=== PATIENT | female | born 2000 | race Caucasian/White ===

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

== ENCOUNTER 2020-03-30 22:39 | Emergency (ER) | payer SELFPAY ==
--- NOTE | 2020-03-30 23:06 | EDM.PDOC ---
ED HPI GENERAL MEDICAL PROBLEM - General Chief Complaint: Abdominal Pain Stated Complaint: STOMACH PAINS AND DIARRHEA Time Seen by Provider: 03/30/20 23:05 - History of Present Illness INITIAL COMMENTS - FREE TEXT/NARRATIVE: 20-year-old female presents the emergency room with intermittent abdominal cramps and diarrhea. This started this morning patient had frequent bouts of diarrhea that was crampy in nature. The diarrhea is pretty much gone however she still has intermittent cramping. She has had no nausea or vomiting no fevers or chills. Her coworkers have not had similar complaints. She is currently on control and states she is taking this on a regular basis. 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 (see below) Other Treatments LEAD MAINTENANCE TECHNICIAN: peptobismol Lower Abdominal Pain Score (Numeric/FACES): 6 - Related Data Allergies Allergy/AdvReac Type Severity Reaction Status Date / Time pepper (genus Capsicum) Allergy Airway Verified 03/30/20 22:51 Tightness tomato Allergy Airway Verified 03/30/20 22:51 Tightness Home Meds: Home Meds Sertraline [Zoloft] 100 mg PO DAILY 12/25/19 [History] norgestimate-ethinyl estradioL [Ortho Tri-Cyclen 28 Tablet] 1 each PO DAILY 12/25/19 [History] Hyoscyamine Sulfate [Levsin-Sl] 0.125 mg SL ASDIRECTED #12 tab.subl 03/31/20 [Rx] Past Medical History HEENT History: Reports: None Cardiovascular History: Reports: None Respiratory History: Reports: None Gastrointestinal History: Reports: GERD Genitourinary History: Reports: None 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 History: Musculoskeletal History: Reports: None Neurological History: Reports: Migraines Psychiatric History: Reports: Anxiety, Depression Endocrine/Metabolic History: Reports: None Hematologic History: Reports: None Immunologic History: Reports: None Oncologic (Cancer) History: Reports: None Dermatologic History: Reports: None - Infectious Disease History Infectious Disease History: Reports: None Social & Family History - Caffeine Use Caffeine Use: Reports: Energy Drinks Caffeine Use Comment: occasionally - Recreational Drug Use Recreational Drug Use: No ED ROS GENERAL - Review of Systems Review Of Systems: See Below Constitutional: Reports: No Symptoms HEENT: Reports: No Symptoms, Vertigo Cardiovascular: Reports: No Symptoms Endocrine: Reports: No Symptoms GI/Abdominal: Reports: Abdominal Pain (Crampy pain), Diarrhea. Denies: Constipation, Nausea, Vomiting : Reports: No Symptoms Musculoskeletal: Reports: No Symptoms Skin: Reports: No Symptoms Neurological: Reports: No Symptoms Psychiatric: Reports: No Symptoms ED EXAM, GI/ABD - Physical Exam Exam: See Below Exam Limited By: No Limitations General Appearance: Alert, No Apparent Distress Head: Atraumatic, Normocephalic Neck: Normal Inspection, Supple, Non-Tender, Full Range of Motion Respiratory/Chest: No Respiratory Distress, Lungs Clear, Normal Breath Sounds Cardiovascular: Regular Rate, Rhythm, No Edema, No Murmur GI/Abdominal Exam: Normal Bowel Sounds, Soft, Tender (All non-localizing discomfort with palpation no rigidity rebound or guarding noted) Back Exam: Normal Inspection. No: CVA Tenderness (L), CVA Tenderness (R) Neurological: Alert, Oriented Course - Vital Signs Last Recorded V/S: Last Vital Signs Temp 36.3 C 03/30/20 22:47 Pulse 75 03/30/20 23:31 Resp 16 03/30/20 23:31 BP 114/72 03/30/20 23:31 Pulse Ox 99 03/30/20 23:31 - Orders/Labs/Meds Meds: Medications Discontinued Medications Generic Name Dose Route Start Last Admin Trade Name Otis PRN Reason Stop Dose Admin Hyoscyamine 0.25 mg 03/30/20 23:14 03/30/20 23:32 Hyomax-Sl SL 03/30/20 23:15 0.25 mg ONETIME ONE Administration - Re-Assessments/Exams Free Text/Narrative Re-Assessment/Exam: 03/30/20 23:27 She states she is sleep deprived and does not want to stay here all that long did discuss laboratory evaluation and an abdominal x-ray she like to hold off on this. We will give her a dose of Levsin 0.25 mg and see how she does. 03/31/20 00:13 The patient is doing considerably better after the Levsin. And she would like to go home. Departure - Departure Time of Disposition: 00:15 Disposition: Home, Self-Care 01 Clinical Impression: Diarrhea - Discharge Information Referrals: Amaya Benz NP [Primary Care Provider] - Forms: ED Department Discharge Additional Instructions: Return to the emergency room with any questions problems or worsening symptoms. 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 Even given a prescription for Levsin take 1 or 2 every 4 hours as needed for cramping. Sepsis Event Note (ED) - Evaluation Sepsis Screening Result: No Definite Risk - Focused Exam Vital Signs: Vital Signs Temp Pulse Resp BP Pulse Ox 03/30/20 23:31 75 16 114/72 99 03/30/20 22:47 36.3 C 66 16 122/71 99
[2020-03-30] MEDS ORDERED: Hyoscyamine 0.125 MG Tab.SL SL ONE (23:14)
== END 2020-03-31 00:22 | disposition home or self-care (01) ==
LOC: JD.ED 22:39
DX: R19.7 Diarrhea, unspecified (principal); F41.9 Anxiety disorder, unspecified; F32.9 Major depressive disorder, single episode, unspecified; Z91.018 Allergy to other foods; Z79.899 Other long term (current) drug therapy
CPT/HCPCS: 99283; A9270; 99282

== ENCOUNTER 2021-03-11 20:33 | Emergency (ER) | payer MEDICAID ==
[2021-03-11] MEDS ORDERED: Amoxicillin/Clavulanate K 875-125 MG Tab PO ONE (21:59)
[2021-03-11] MEDS ORDERED: Ketorolac 60 MG/2 ML SDV IM ONE (21:59)
[2021-03-11] MEDS ORDERED: Acetaminophen/HYDROcodone 325-5 MG Tab PO ONE (22:03)
--- NOTE | 2021-03-11 22:17 | EDM.PDOC ---
ED HPI GENERAL MEDICAL PROBLEM - General Chief Complaint: ENT Problem Stated Complaint: DENTAL COMPLAINT Time Seen by Provider: 03/11/21 21:58 Source of Information: Reports: Patient, RN Notes Reviewed History Limitations: Reports: No Limitations - History of Present Illness INITIAL COMMENTS - FREE TEXT/NARRATIVE: Patient is a 21-year-old female who presents to the ER for the evaluation of her dental complaint. She notes that she has been having pain with a tooth in her left upper jaw for about a week now, she has been using Tylenol and ibuprofen with little to no relief. She believes that it might be one of her wisdom teeth trying to break through, or has either eroded or broken off. She has an appointment with the dental provider in the middle of April, she states that it is hard to find a provider who takes Medicaid. She has had no fevers or chills, cough or shortness of breath, but states that the pain is so intense that it is causing a migraine headache and she is not been able to eat much, or get much sleep for the past few days. She is also not complaining of any sort of nausea/vomiting/diarrhea, or any sort of sore throat or otherwise. 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: Acetaminophen, NSAIDS Left Oral/Mouth Pain Score (Numeric/FACES): 8 - Related Data Allergies Allergy/AdvReac Type Severity Reaction Status Date / Time pepper (genus Capsicum) Allergy Airway Verified 03/11/21 21:23 Tightness tomato Allergy Airway Verified 03/11/21 21:23 Tightness Home Meds: Home Meds Sertraline [Zoloft] 100 mg PO DAILY 12/25/19 [History] Amoxicillin/Clavulanate K [Augmentin 875-125 MG] 1 tab PO BID #14 tablet 03/11/21 [Rx] Hydrocodone/Acetaminophen [HYDROcodone-Acetaminophen 5-325 MG] 1 each PO Q6H PRN #10 tablet 03/11/21 [Rx] Past Medical History - Past Health History Medical/Surgical History: Denies Medical/Surgical History HEENT History: Reports: None Cardiovascular History: Reports: None Respiratory History: Reports: None Gastrointestinal History: Reports: GERD Genitourinary History: Reports: None [employer]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 [employer] History: Musculoskeletal History: Reports: None Neurological History: Reports: Migraines Psychiatric History: Reports: Anxiety, Depression Endocrine/Metabolic History: Reports: None Hematologic History: Reports: None Immunologic History: Reports: None Oncologic (Cancer) History: Reports: None Dermatologic History: Reports: None - Infectious Disease History Infectious Disease History: Reports: None Social & Family History - Tobacco Use Tobacco Use Status *Q: Never Tobacco User - Caffeine Use Caffeine Use: Reports: None Caffeine Use Comment: occasionally - Recreational Drug Use Recreational Drug Use: No ED ROS ENT - Review of Systems Review Of Systems: Comprehensive ROS is negative, except as noted in HPI. ED EXAM, ENT - Physical Exam Exam: See Below Exam Limited By: No Limitations General Appearance: Alert, WD/WN, No Apparent Distress Mouth/Throat: Normal Inspection, Normal Gums, Normal Lips, Normal Oropharynx, Dental Pain (to left upper jaw) Head: Atraumatic, Normocephalic Respiratory/Chest: No Respiratory Distress, Lungs Clear, Normal Breath Sounds, No Accessory Muscle Use, Chest Non-Tender Cardiovascular: Normal Peripheral Pulses, Regular Rate, Rhythm, No Edema Extremities: Normal Inspection, Normal Capillary Refill Neurological: Alert, Oriented, Normal Cognition, No Motor/Sensory Deficits Psychiatric: Normal Affect, Normal Mood Skin: Warm, Dry, Intact, Normal Color, No Rash Course - Vital Signs Last Recorded V/S: Last Vital Signs Temp 97.5 F 03/11/21 21:21 Pulse 77 03/11/21 21:21 Resp 16 03/11/21 21:21 BP 135/91 H 03/11/21 21:21 Pulse Ox 100 03/11/21 21:21 - Orders/Labs/Meds Meds: Medications Discontinued Medications Generic Name Dose Route Start Last Admin Trade Name Otis PRN Reason Stop Dose Admin Hydrocodone Bitart/Acetaminophen 2 tab 03/11/21 22:03 Acetaminophen/Hydrocodone 325-5 Mg Tab PO 03/11/21 22:04 ONETIME ONE Amoxicillin/Clavulanate Potassium 1 tab 03/11/21 21:59 Amoxicillin/Clavulanate K 875-125 Mg Tab PO 03/11/21 22:00 ONETIME ONE Ketorolac Tromethamine 60 mg 03/11/21 21:59 Ketorolac 60 Mg/2 Ml Sdv IM 03/11/21 22:00 ONETIME ONE - Re-Assessments/Exams Free Text/Narrative Re-Assessment/Exam: 03/11/21 22:14 Patient presents to the ER for a dental complaint, we will go ahead and get her started on some antibiotics, get her some pain medications for relief and discharged home with general recommendations. Departure - Departure Time of Disposition: 22:15 Disposition: Home, Self-Care 01 Condition: Good Clinical Impression: Pain, dental - Discharge Information *PRESCRIPTION DRUG MONITORING PROGRAM REVIEWED*: Yes *COPY OF PRESCRIPTION DRUG MONITORING REPORT IN PATIENT BENJAMÍN: No Prescriptions: Amoxicillin/Clavulanate K [Augmentin 875-125 MG] 1 tab PO BID #14 tablet Hydrocodone/Acetaminophen [HYDROcodone-Acetaminophen 5-325 MG] 1 each PO Q6H PRN #10 tablet PRN Reason: Pain Instructions: Dental Pain, [id number] Referrals: PCP,None [Primary Care Provider] - Additional Instructions: You have been evaluated in the ED for your dental pain. You have been provided with a script for Augmentin. Please take this medication as directed. (1 tab BID for 7 days or until gone). Please note this antibiotic can take up to 48 hours to provide coverage. If you do not notice an improvement in the swelling within 3 days time I recommend you seek care for reevaluation for change in antibiotics. This antibiotic can cause diarrhea, recommend that you start a probiotic while taking this medication. You were given a prescription for a strong pain medication, hydrocodo ne/acetaminophen 5/325 mg, please take 1 tab every 6 hours as needed for pain not relieved by Tylenol or ibuprofen alone. Please note this medication does contain Tylenol in it, so do not take more than 4000 mg in a 24-hour time span. These medications can be addictive, so please take as few as possible to achieve adequate pain control. These meds can also be quite constipating, recommend that you increase your oral fluid intake and take a stool softener like MiraLAX while taking these medications. Do not drive while taking this medication. This medication was electronically sent to the [facility] located on [address]. Recommend that you also take at least 600 mg ibuprofen every 6 hours, or 1 to 2 tablets of Aleve every 12 hours for ongoing inflammation relief. Do not exceed 3200 mg ibuprofen in a 24-hour time span. You may use hot pack/ ice packs to the affected area as tolerated in 15-20 minute intervals. You will ultimately need to find a dentist to provide definitive management of your dental pain. Please keep your previous appointment with your dental provider, or try the [facility] in [place], [place], , this clinic that has been known to take people that do not have dental insurance, and may provide payment plans. You might want to check with this provider, regarding your dental pain. Please return to the ED if your symptoms change or worsen. Sepsis Event Note (ED) - Focused Exam Vital Signs: Vital Signs Temp Pulse Resp BP Pulse Ox 03/11/21 21:21 97.5 F 77 16 135/91 H 100
== END 2021-03-11 22:30 | disposition home or self-care (01) ==
LOC: JD.ED 20:33
DX: K08.89 Other specified disorders of teeth and supporting structures (principal); Z91.018 Allergy to other foods
CPT/HCPCS: 96372; 99283; A9270; J1885

== ENCOUNTER 2021-04-03 19:02 | Emergency (ER) | payer MEDICAID ==
[2021-04-03] MEDS ORDERED: Ketorolac 60 MG/2 ML SDV IM ONE (19:54)
[2021-04-03] MEDS ORDERED: HYDROmorphone 1 MG/ML Syringe IM ONE (19:54)
--- NOTE | 2021-04-03 20:02 | EDM.PDOC ---
ED HPI GENERAL MEDICAL PROBLEM - General Chief Complaint: ENT Problem Stated Complaint: TOOTH PAIN Time Seen by Provider: 04/03/21 19:46 Source of Information: Reports: Patient History Limitations: Reports: No Limitations - History of Present Illness INITIAL COMMENTS - FREE TEXT/NARRATIVE: The patient presents with left upper tooth pain. This started over a month ago. She has been trying to get into her dentist. She has an appointment next Sunday. She has more pain the past couple of day. She has no fever or chills. Onset: Gradual Duration: Week(s): (4) Location: Reports: Face (mouth) Quality: Reports: Sharp Severity: Severe Improves with: Reports: None Worsens with: Reports: None Associated Symptoms: Reports: No Other Symptoms Left Oral/Mouth Pain Score (Numeric/FACES): 10 - Related Data Allergies Allergy/AdvReac Type Severity Reaction Status Date / Time pepper (genus Capsicum) Allergy Airway Verified 04/03/21 19:42 Tightness tomato Allergy Airway Verified 04/03/21 19:42 Tightness Home Meds: Home Meds Sertraline [Zoloft] 100 mg PO DAILY 12/25/19 [History] Past Medical History - Past Health History Medical/Surgical History: Denies Medical/Surgical History HEENT History: Reports: None Cardiovascular History: Reports: None Respiratory History: Reports: None Gastrointestinal History: Reports: GERD Genitourinary History: Reports: None JUNIOR PARALEGAL History: Reports: Other JUNIOR PARALEGAL History: Musculoskeletal History: Reports: None Neurological History: Reports: Migraines Psychiatric History: Reports: Anxiety, Depression Endocrine/Metabolic History: Reports: None Hematologic History: Reports: None Immunologic History: Reports: None Oncologic (Cancer) History: Reports: None Dermatologic History: Reports: None - Infectious Disease History Infectious Disease History: Reports: None Social & Family History - Caffeine Use Caffeine Use: Reports: Energy Drinks Caffeine Use Comment: occasionally - Recreational Drug Use Recreational Drug Use: No ED ROS ENT - Review of Systems Review Of Systems: See Below Constitutional: Reports: No Symptoms HEENT: Reports: Dental Pain Respiratory: Reports: No Symptoms Cardiovascular: Reports: No Symptoms Endocrine: Reports: No Symptoms GI/Abdominal: Reports: No Symptoms : Reports: No Symptoms Musculoskeletal: Reports: No Symptoms ED EXAM, ENT - Physical Exam Exam: See Below Exam Limited By: No Limitations General Appearance: Alert, No Apparent Distress Ears: Normal External Exam Nose: Normal Inspection Mouth/Throat: Other (Pain upon palpation with erythema and edema to the left upper jaw with a broken 2nd molar.) Course - Vital Signs Last Recorded V/S: Last Vital Signs Temp 98.4 F 04/03/21 19:41 Pulse 82 04/03/21 19:41 Resp 18 04/03/21 19:41 BP 132/93 H 04/03/21 19:41 Pulse Ox 97 04/03/21 19:41 - Orders/Labs/Meds Meds: Medications Discontinued Medications Generic Name Dose Route Start Last Admin Trade Name Otis PRN Reason Stop Dose Admin Hydromorphone HCl 1 mg 04/03/21 19:54 Hydromorphone 1 Mg/Ml Syringe IM 04/03/21 19:55 ONETIME ONE Ketorolac Tromethamine 60 mg 04/03/21 19:54 Ketorolac 60 Mg/2 Ml Sdv IM 04/03/21 19:55 ONETIME ONE - Re-Assessments/Exams Free Text/Narrative Re-Assessment/Exam: 04/03/21 20:01 I ordered a shot of dilaudid 1mg and toradol 60mg. Departure - Departure Time of Disposition: 20:35 Disposition: Home, Self-Care 01 Condition: Good Clinical Impression: Pain, dental, Dental infection Fractured tooth Qualifiers: Encounter type: initial encounter Fracture type: closed Qualified Code(s): S02.5XXA - Fracture of tooth (traumatic), initial encounter for closed fracture - Discharge Information *PRESCRIPTION DRUG MONITORING PROGRAM REVIEWED*: Not Applicable *COPY OF PRESCRIPTION DRUG MONITORING REPORT IN PATIENT BENJAMÍN: Not Applicable Referrals: PCP,None [Primary Care Provider] - Forms: ED Department Discharge Additional Instructions: Take the pen VK 4 times per day for 10 days. Take tylenol or motrin as needed for pain. If that does not work, try the percocet. Please return if you are worse. Sepsis Event Note (ED) - Focused Exam Vital Signs: Vital Signs Temp Pulse Resp BP Pulse Ox 04/03/21 19:41 98.4 F 82 18 132/93 H 97
== END 2021-04-03 20:55 | disposition home or self-care (01) ==
LOC: JD.ED 19:02
DX: K04.7 Periapical abscess without sinus (principal); K03.81 Cracked tooth; Z91.018 Allergy to other foods
CPT/HCPCS: 96372; 99282; J1170; J1885

== ENCOUNTER 2021-04-16 15:08 | Emergency (ER) | payer MEDICAID ==
--- NOTE | 2021-04-16 15:53 | EDM.PDOC ---
ED HPI GENERAL MEDICAL PROBLEM - General Chief Complaint: ENT Problem Stated Complaint: HEADACHE Time Seen by Provider: 04/16/21 15:30 Source of Information: Reports: Patient, RN Notes Reviewed History Limitations: Reports: No Limitations - History of Present Illness INITIAL COMMENTS - FREE TEXT/NARRATIVE: Patient is a 21-year-old female presenting to the emergency department with complaints of ongoing left upper dental pain. She has a broken wisdom tooth in that area and it is beginning her pain for a number of months. She was seen by her dentist on April 12 advised that she will have to have a surgical procedure, however he is able to complete it. He is unfortunately out of the office and a family emergency until 25 April. At that time, he is supposed to contact her to set up an appointment to have this removed. She has been using Tylenol and ibuprofen with little to no relief. She just finished a course of penicillin V that was prescribed by our ER physician. States that she thinks the pain did slightly improve after taking this, however whenever she gets up and moves around or lies flat the pain worsens. She has took Tylenol and ibuprofen this morning with little relief. Denies any fever, chills, nausea, or vomiting. Oral/Mouth Pain Score (Numeric/FACES): 9 - Related Data Allergies Allergy/AdvReac Type Severity Reaction Status Date / Time pepper (genus Capsicum) Allergy Severe Airway Verified 04/16/21 15:21 Tightness tomato Allergy Severe Airway Verified 04/16/21 15:21 Tightness Home Meds: Home Meds Sertraline [Zoloft] 100 mg PO DAILY 12/25/19 [History] Acetaminophen/oxyCODONE [Percocet 325-5 MG] 0.5 - 1 each PO Q4H PRN #10 tab 04/16/21 [Rx] Past Medical History - Past Health History Medical/Surgical History: Denies Medical/Surgical History HEENT History: Reports: None Cardiovascular History: Reports: None Respiratory History: Reports: None Gastrointestinal History: Reports: GERD Genitourinary History: Reports: None SLOOP CAPTAIN History: Reports: Other SLOOP CAPTAIN History: Musculoskeletal History: Reports: None Neurological History: Reports: Migraines Psychiatric History: Reports: Anxiety, Depression Endocrine/Metabolic History: Reports: None Hematologic History: Reports: None Immunologic History: Reports: None Oncologic (Cancer) History: Reports: None Dermatologic History: Reports: None - Infectious Disease History Infectious Disease History: Reports: None Social & Family History - Caffeine Use Caffeine Use: Reports: Energy Drinks Caffeine Use Comment: occasionally - Recreational Drug Use Recreational Drug Use: No ED ROS ENT - Review of Systems Review Of Systems: Comprehensive ROS is negative, except as noted in HPI. ED EXAM, ENT - Physical Exam Exam: See Below Exam Limited By: No Limitations General Appearance: Alert, WD/WN, No Apparent Distress Mouth/Throat: Other (Fracture left upper wisdom tooth. No swelling or erythema of surrounding tissues.) Respiratory/Chest: No Respiratory Distress, Lungs Clear, Normal Breath Sounds, No Accessory Muscle Use, Chest Non-Tender Cardiovascular: Normal Peripheral Pulses, Regular Rate, Rhythm, No Edema, No Gallop, No JVD, No Murmur, No Rub Neurological: Alert, Oriented, CN II-XII Intact, Normal Cognition, Normal Gait, Normal Reflexes, No Motor/Sensory Deficits Psychiatric: Normal Affect, Normal Mood Skin: Warm, Dry, Intact, Normal Color, No Rash Course - Vital Signs Last Recorded V/S: Last Vital Signs Temp 97.4 F 04/16/21 15:19 Pulse 65 04/16/21 15:19 Resp 16 04/16/21 15:19 BP 134/77 04/16/21 15:19 Pulse Ox 100 04/16/21 15:19 - Orders/Labs/Meds Meds: Medications Discontinued Medications Generic Name Dose Route Start Last Admin Trade Name Freq PRN Reason Stop Dose Admin Hydromorphone HCl 1 mg 04/16/21 16:08 Hydromorphone 1 Mg/Ml Syringe IM 04/16/21 16:09 ONETIME ONE Ketorolac Tromethamine 60 mg 04/16/21 16:08 Ketorolac 60 Mg/2 Ml Sdv IM 04/16/21 16:09 ONETIME ONE - Re-Assessments/Exams Free Text/Narrative Re-Assessment/Exam: Patient is a 21-year-old female presenting to the emergency department complains of ongoing pain to her left upper wisdom tooth. She just completed a treatment of penicillin V which she feels did help slightly, however the pain is still there. On exam, she does have a fracture of her left upper wisdom tooth. There is no redness or swelling. I do not feel there is any infection, therefore I do not feel that another round of antibiotics is necessary. She will be given an injection of Toradol and Dilaudid. I will prescribe a short course of Percocet. She should follow-up with her dentist as planned. Discharge instructions as documented. Departure - Departure Time of Disposition: 16:09 Disposition: Home, Self-Care 01 Condition: Good Clinical Impression: Pain, dental Fractured tooth Qualifiers: Encounter type: initial encounter Fracture type: closed Qualified Code(s): S02.5XXA - Fracture of tooth (traumatic), initial encounter for closed fracture - Discharge Information *PRESCRIPTION DRUG MONITORING PROGRAM REVIEWED*: Yes *COPY OF PRESCRIPTION DRUG MONITORING REPORT IN PATIENT BENJAMÍN: No Prescriptions: Acetaminophen/oxyCODONE [Percocet 325-5 MG] 0.5 - 1 each PO Q4H PRN #10 tab PRN Reason: Pain Referrals: PCP,None [Primary Care Provider] - Forms: ED Department Discharge Additional Instructions: You were seen in the emergency department today for ongoing pain to your left upper wisdom tooth. While in the ER, you received an injection of Dilaudid and Toradol for pain. Recommend that she take Tylenol ibuprofen routinely. For pain not relieved by this, you may use 1/2-1 tab of Percocet every 4 hours as needed. Ensure that you are not taking in more than 4000 mg of Tylenol or 3200 mg of ibuprofen from all sources in a 24-hour period. Follow-up with your dentist as soon as possible. Return to ER as needed. Sepsis Event Note (ED) - Evaluation Sepsis Screening Result: No Definite Risk - Focused Exam Vital Signs: Vital Signs Temp Pulse Resp BP Pulse Ox 04/16/21 15:19 97.4 F 65 16 134/77 100
[2021-04-16] MEDS ORDERED: Ketorolac 60 MG/2 ML SDV IM ONE (16:08)
[2021-04-16] MEDS ORDERED: HYDROmorphone 1 MG/ML Syringe IM ONE (16:08)
== END 2021-04-16 16:25 | disposition home or self-care (01) ==
LOC: JD.ED 15:08
DX: S02.5XXA Fracture of tooth (traumatic), initial encounter for closed fracture (principal); Z91.018 Allergy to other foods; X58.XXXA Exposure to other specified factors, initial encounter
CPT/HCPCS: 96372; 99282; J1170; J1885

== ENCOUNTER 2021-04-30 16:49 | Emergency (ER) | payer MEDICAID ==
--- NOTE | 2021-04-30 18:28 | EDM.PDOC ---
ED HPI GENERAL MEDICAL PROBLEM - General Chief Complaint: ENT Problem Stated Complaint: DENTAL COMPLAINT Time Seen by Provider: 04/30/21 18:20 Source of Information: Reports: Patient History Limitations: Reports: No Limitations - History of Present Illness INITIAL COMMENTS - FREE TEXT/NARRATIVE: 21-year-old female presents the emergency department today with complaints of pain noted to the last molar on the top left side. Patient states that this has been ongoing for the past 2 months and she has been seeing Dr. Guillen for her dentistry. Patient states that he plans on pulling 6 of her teeth however she has had to wait for insurance approval for this process to happen. She states that over the past couple of days the pain has become progressively more severe and even radiates up into the left ear. She denies any recent fever, chills, nausea, vomiting or diarrhea. 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: NSAIDS Other 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 II ENGRAVER: 600 mg Ibuprofen Left Upper Jaw Pain Score (Numeric/FACES): 8 - Related Data Allergies Allergy/AdvReac Type Severity Reaction Status Date / Time pepper (genus Capsicum) Allergy Severe Airway Verified 04/30/21 17:25 Tightness tomato Allergy Severe Airway Verified 04/30/21 17:25 Tightness Home Meds: Home Meds Sertraline [Zoloft] 50 mg PO DAILY 12/25/19 [History] Clindamycin HCl 300 mg PO QID #28 capsule 04/30/21 [Rx] Hydrocodone/Acetaminophen [HYDROcodone-Acetaminophen 5-325 MG] 1 each PO Q4H PRN #12 tab 04/30/21 [Rx] Past Medical History - Past Health History Medical/Surgical History: Denies Medical/Surgical History HEENT History: Reports: None Cardiovascular History: Reports: None Respiratory History: Reports: None Gastrointestinal History: Reports: GERD Genitourinary History: Reports: None STRIPER History: Reports: Other STRIPER History: Musculoskeletal History: Reports: None Neurological History: Reports: Migraines Psychiatric History: Reports: Anxiety, Depression Endocrine/Metabolic History: Reports: None Hematologic History: Reports: None Immunologic History: Reports: None Oncologic (Cancer) History: Reports: None Dermatologic History: Reports: None - Infectious Disease History Infectious Disease History: Reports: None Social & Family History - Tobacco Use Tobacco Use Status *Q: Former Tobacco User Used Tobacco, but Quit: Yes Month/Year Tobacco Last Used: 07/02/2019 Second Hand Smoke Exposure: No - Caffeine Use Caffeine Use: Reports: Energy Drinks Caffeine Use Comment: occasionally - Alcohol Use Days Per Week of Alcohol Use: 1 Number of Drinks Per Day: 1 Total Drinks Per Week: 1 - Recreational Drug Use Recreational Drug Use: No ED ROS ENT - Review of Systems Review Of Systems: Comprehensive ROS is negative, except as noted in HPI. ED EXAM, ENT - Physical Exam Exam: See Below Exam Limited By: No Limitations General Appearance: Alert, WD/WN, Mild Distress Ears: Normal External Exam, Hearing Grossly Normal Nose: Normal Inspection Mouth/Throat: Normal Inspection, Dental Pain (Top left posterior), Dental Tenderness (Top left posterior) Head: Atraumatic, Normocephalic Neck: Normal Inspection, Supple Respiratory/Chest: No Respiratory Distress, No Accessory Muscle Use Cardiovascular: Normal Peripheral Pulses, Regular Rate, Rhythm GI/Abdominal: No Distention (Female) Exam: Deferred Rectal (Female) Exam: Deferred Back: Normal Inspection Extremities: Normal Inspection Neurological: Alert, Oriented, Normal Cognition Psychiatric: Normal Affect, Normal Mood Skin: Warm, Dry, Intact, Normal Color, No Rash Lymphatic: No Adenopathy Course - Vital Signs Text/Narrative:: Upon exam, the patient does have edema noted to the gumline along the top last molar. She does have tenderness with minimal palpation to this area as well. The tooth does appear to be broken. There is foul odor noted from her mouth as well. Patient will receive 60 mg of Toradol IM. We will then send a prescription for clindamycin 300 mg 4 times daily x7 days for the patient to take. Initially was going to send the patient home with hydrocodone however she tells me that this does not work for her and she gets migraine headaches as a result. Discussed giving the patient tramadol and she asks if I could give her oxycodone. At that time I tell her I will not prescribe something the strong for her. I question whether or not she has discussed her dental issues of pain with her dentist and she tells me that he states he will not prescribe anything stronger than Tylenol. Patient then requests that I give her hydrocodone instead. I will send a prescription for the hydrocodone and clindamycin to her pharmacy. Last Recorded V/S: Last Vital Signs Temp 97.7 F 04/30/21 17:15 Pulse 84 04/30/21 17:15 Resp 16 04/30/21 17:15 BP 136/88 04/30/21 17:15 Pulse Ox 97 04/30/21 17:15 - Orders/Labs/Meds Orders: Active Orders 24 hr Category Date Time Status Ketorolac [Toradol] Med 04/30/21 18:30 Once 60 mg IM ONETIME ONE Medication Orders Ketorolac Tromethamine (Ketorolac 60 Mg/2 Ml Sdv) 60 mg IM ONETIME ONE Stop: 04/30/21 18:31 Meds: Medications Generic Name Dose Route Start Last Admin Trade Name Freq PRN Reason Stop Dose Admin Ketorolac Tromethamine 60 mg 04/30/21 18:30 Ketorolac 60 Mg/2 Ml Sdv IM 04/30/21 18:31 ONETIME ONE Departure - Departure Time of Disposition: 18:34 Disposition: Home, Self-Care 01 Condition: Good Clinical Impression: Dental caries - Discharge Information Prescriptions: Clindamycin HCl 300 mg PO QID #28 capsule Hydrocodone/Acetaminophen [HYDROcodone-Acetaminophen 5-325 MG] 1 each PO Q4H PRN #12 tab PRN Reason: Pain (Moderate 4-6) Referrals: PCP,None [Primary Care Provider] - Forms: ED Department Discharge Additional Instructions: You were seen in the emergency department today with complaints of increased pain noted to the top left last tooth. Exam did reveal increased swelling and tenderness noted to the gum area and the tooth does appear to be broken. You received a shot of IM Toradol while in the emergency department. This should help relieve pain and inflammation associated with dental pain. I have sent prescription for an antibiotic called clindamycin 300 mg to be taken 4 times daily for 7 days. Be sure to complete this full course of antibiotic. I have also sent a prescription for pain medication called hydrocodone. You may take 1 tab every 4 hours as needed for more severe pain however do recommend that you alternate taking Tylenol 650 mg with ibuprofen 600 mg every 4 hours. Antibiotic should take full effect in about 48 to 72 hours and you should no longer need the narcotic pain medication after that time. Sepsis Event Note (ED) - Evaluation Sepsis Screening Result: No Definite Risk - Focused Exam Vital Signs: Vital Signs Temp Pulse Resp BP Pulse Ox 04/30/21 17:15 97.7 F 84 16 136/88 97 - My Orders Last 24 Hours: My Active Orders 04/30/21 18:30 Ketorolac [Toradol] 60 mg IM ONETIME ONE - Assessment/Plan Last 24 Hours: My Active Orders 04/30/21 18:30 Ketorolac [Toradol] 60 mg IM ONETIME ONE
[2021-04-30] MEDS ORDERED: Ketorolac 60 MG/2 ML SDV IM ONE (18:30)
== END 2021-04-30 19:05 | disposition home or self-care (01) ==
LOC: JD.ED 16:49
DX: K02.9 Dental caries, unspecified (principal); Z91.018 Allergy to other foods; Z91.048 Other nonmedicinal substance allergy status; Z87.891 Personal history of nicotine dependence
CPT/HCPCS: 96372; 99282; J1885

== ENCOUNTER 2021-05-15 12:25 | Emergency (ER) | payer MEDICAID ==
--- NOTE | 2021-05-15 14:18 | EDM.PDOC ---
ED HPI GENERAL MEDICAL PROBLEM - General Chief Complaint: ENT Problem Stated Complaint: TEETH PAIN Time Seen by Provider: 05/15/21 14:10 Source of Information: Reports: Patient, RN Notes Reviewed History Limitations: Reports: No Limitations - History of Present Illness INITIAL COMMENTS - FREE TEXT/NARRATIVE: Patient is a 21-year-old female who presents to the ER for her bilateral tooth pain. States she had 3 wisdom teeth, and some molars taken out on 05/10/2021. Has been using Tylenol ibuprofen for pain management and was put on clindamycin. States that the pain is not under control with Tylenol ibuprofen is requesting something little stronger for pain management. No increased drainage from the wound sites, no associated fevers or chills, shortness of breath or difficulty swallowing. Oral/Mouth Pain Score (Numeric/FACES): 7 - Related Data Allergies Allergy/AdvReac Type Severity Reaction Status Date / Time pepper (genus Capsicum) Allergy Severe Airway Verified 05/15/21 13:12 Tightness tomato Allergy Severe Airway Verified 05/15/21 13:12 Tightness Home Meds: Home Meds Sertraline [Zoloft] 50 mg PO DAILY 12/25/19 [History] Clindamycin HCl 300 mg PO QID #28 capsule 04/30/21 [Rx] oxyCODONE HCl/Acetaminophen [Oxycodone-Acetaminophen 5-325] 1 tab PO Q6H PRN #20 tablet 05/15/21 [Rx] Past Medical History - Past Health History Medical/Surgical History: Denies Medical/Surgical History HEENT History: Reports: None Cardiovascular History: Reports: None Respiratory History: Reports: None Gastrointestinal History: Reports: GERD Genitourinary History: Reports: None 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 TECH History: Musculoskeletal History: Reports: None Neurological History: Reports: Migraines Psychiatric History: Reports: Anxiety, Depression Endocrine/Metabolic History: Reports: None Hematologic History: Reports: None Immunologic History: Reports: None Oncologic (Cancer) History: Reports: None Dermatologic History: Reports: None - Infectious Disease History Infectious Disease History: Reports: None - Past Surgical History HEENT Surgical History: Reports: Oral Surgery Social & Family History - Tobacco Use Tobacco Use Status *Q: Current Every Day Tobacco User Years of Tobacco use: 3 Packs/Tins Daily: 1 - Caffeine Use Caffeine Use: Reports: Coffee Caffeine Use Comment: occasionally - Recreational Drug Use Recreational Drug Use: No ED ROS ENT - Review of Systems Review Of Systems: Comprehensive ROS is negative, except as noted in HPI. ED EXAM, ENT - Physical Exam Exam: See Below Exam Limited By: No Limitations General Appearance: Alert, WD/WN, No Apparent Distress Mouth/Throat: Normal Inspection, Normal Gums, Normal Lips, Normal Oropharynx, Normal Teeth, Gum Swelling (/pain) Head: Normocephalic Respiratory/Chest: No Respiratory Distress, Lungs Clear, Normal Breath Sounds, No Accessory Muscle Use, Chest Non-Tender Cardiovascular: Normal Peripheral Pulses, Regular Rate, Rhythm, No Edema Psychiatric: Normal Affect, Normal Mood Skin: Warm, Dry, Intact, Normal Color, No Rash Course - Vital Signs Last Recorded V/S: Last Vital Signs Temp 99.0 F 05/15/21 13:09 Pulse 90 05/15/21 13:09 Resp 18 05/15/21 13:09 BP 127/76 05/15/21 13:09 Pulse Ox 100 05/15/21 13:09 - Re-Assessments/Exams Free Text/Narrative Re-Assessment/Exam: 05/15/21 14:16 Patient presents to the ER for evaluation of her dental complaint. We will go ahead and get her some tablets of oxycodone for pain management and have her follow-up with her provider this week for ongoing management. Departure - Departure Time of Disposition: 14:17 Disposition: Home, Self-Care 01 Condition: Good Clinical Impression: Pain, dental - Discharge Information *PRESCRIPTION DRUG MONITORING PROGRAM REVIEWED*: Yes *COPY OF PRESCRIPTION DRUG MONITORING REPORT IN PATIENT BENJAMÍN: No Prescriptions: oxyCODONE HCl/Acetaminophen [Oxycodone-Acetaminophen 5-325] 1 tab PO Q6H PRN #20 tablet PRN Reason: Pain Instructions: Dental Pain, [id number] Referrals: PCP,None [Primary Care Provider] - Additional Instructions: You have been evaluated in the ED for your dental pain. You were given a prescription for a strong pain medication, oxycodone/acetaminophen 5/325 mg, please take 1 tab every 6 hours as needed for pain not relieved by Tylenol or ibuprofen alone. Please note this medication does contain Tylenol in it, so do not take more than 4000 mg in a 24-hour time span. These medications can be addictive, so please take as few as possible to achieve adequate pain control. These meds can also be quite constipating, recommend that you increase your oral fluid intake and take a stool softener like MiraLAX while taking these medications. Do not drive while taking this medication. Your prescription was electronically sent to [facility] located near [facility], this pharmacy is only open from 12 to 4 PM on Sundays, you will need to go there during this timeframe to obtain this medication and take as prescribed. You may use hot pack/ ice packs to the affected area as tolerated in 15-20 minute intervals. When you follow-up with your regular care provider for ongoing pain management this week if symptoms are not getting much better. Please return to the ED if your symptoms change or worsen. Sepsis Event Note (ED) - Focused Exam Vital Signs: Vital Signs Temp Pulse Resp BP Pulse Ox 05/15/21 13:09 99.0 F 90 18 127/76 100
== END 2021-05-15 14:37 | disposition home or self-care (01) ==
LOC: JD.ED 12:25
DX: K08.89 Other specified disorders of teeth and supporting structures (principal); Z91.018 Allergy to other foods; Z88.8 Allergy status to other drugs, medicaments and biological substances; Z72.0 Tobacco use
CPT/HCPCS: 99282

== ENCOUNTER 2022-05-06 18:09 | Emergency (ER) | payer MEDICAID ==
[2022-05-06] MEDS ORDERED: Oxymetazoline 0.05% Nasal Spray 30 ML Bottle NAS ONE (18:25)
== END 2022-05-06 20:00 | disposition home or self-care (01) ==
LOC: JD.ED 18:09
DX: S06.0X0A Concussion without loss of consciousness, initial encounter (principal); S00.01XA Abrasion of scalp, initial encounter; R04.0 Epistaxis; Z91.018 Allergy to other foods; W18.30XA Fall on same level, unspecified, initial encounter
CPT/HCPCS: 30901; 36415; 70450; 70450-26; 72125; 72125-26; 85025; 99284

== ENCOUNTER 2022-05-08 11:47 | Emergency (ER) | payer MEDICAID | END 2022-05-08 12:35 | disposition home or self-care (01) | LOC: JD.ED 11:47 | DX: F07.81 Postconcussional syndrome (principal); Z91.018 Allergy to other foods; Z87.891 Personal history of nicotine dependence | CPT/HCPCS: 99283 ==

== ENCOUNTER 2022-06-27 04:47 | Emergency (ER) | payer MEDICAID ==
[2022-06-27 06:53] LABS: ESTIMATED GFR 125 mL/min (>60)
== END 2022-06-27 09:20 | disposition home or self-care (01) ==
LOC: JD.ED 04:47
DX: M54.6 Pain in thoracic spine (principal); Z91.018 Allergy to other foods; Z79.899 Other long term (current) drug therapy
CPT/HCPCS: 36415; 72072; 72072-26; 80053; 85025; 85652; 86140; 99283

== ENCOUNTER 2022-08-22 12:52 | Emergency (ER) | payer MEDICAID | END 2022-08-22 15:04 | LOC: JD.ED 12:52 | DX: Z53.21 Procedure and treatment not carried out due to patient leaving prior to being seen by health care provider (principal) ==

== ENCOUNTER 2022-10-19 22:16 | Emergency (ER) | payer MEDICAID | END 2022-10-20 00:05 | disposition home or self-care (01) | LOC: JD.ED 22:16 | DX: M41.9 Scoliosis, unspecified (principal); G89.29 Other chronic pain | CPT/HCPCS: 99283 ==

== ENCOUNTER 2022-12-12 22:00 | Emergency (ER) | payer MEDICAID ==
[2022-12-12] MEDS ORDERED: Acetaminophen/oxyCODONE 325-5 MG Tab PO ONE (23:33)
== END 2022-12-13 00:20 | disposition home or self-care (01) ==
LOC: JD.ED 22:00
DX: Z76.0 Encounter for issue of repeat prescription (principal); M54.50 Low back pain, unspecified
CPT/HCPCS: 99281; A9270

== ENCOUNTER 2023-02-22 20:15 | Emergency (ER) | payer MEDICAID ==
[2023-02-22] MEDS ORDERED: Ketorolac 60 MG/2 ML SDV IM ONE (21:21)
== END 2023-02-22 22:09 | disposition home or self-care (01) ==
LOC: JD.ED 20:15
DX: M54.50 Low back pain, unspecified (principal)
CPT/HCPCS: 96372; 99283; J1885

== ENCOUNTER 2023-02-22 22:25 | Emergency (ER) | payer MEDICAID ==
[2023-02-23] MEDS ORDERED: predniSONE 10 MG Tab PO ONE (00:09)
== END 2023-02-23 00:23 | disposition home or self-care (01) ==
LOC: JD.ED 22:25
DX: M54.50 Low back pain, unspecified (principal); G89.29 Other chronic pain; Z79.899 Other long term (current) drug therapy
CPT/HCPCS: 99283; J7512

== ENCOUNTER 2023-03-08 17:37 | Emergency (ER) | payer MEDICAID | END 2023-03-08 18:52 | disposition home or self-care (01) | LOC: JD.ED 17:37 | DX: M54.6 Pain in thoracic spine (principal); Z79.899 Other long term (current) drug therapy | CPT/HCPCS: 99283 ==

== ENCOUNTER 2023-03-11 21:38 | Emergency (ER) | payer MEDICAID | END 2023-03-11 22:26 | disposition home or self-care (01) | LOC: JD.ED 21:38 | DX: M54.50 Low back pain, unspecified (principal); M54.6 Pain in thoracic spine; G89.29 Other chronic pain | CPT/HCPCS: 99283 ==

== ENCOUNTER 2023-03-22 21:10 | Emergency (ER) | payer MEDICAID ==
[2023-03-22] MEDS ORDERED: LORazepam 2 MG/ML SDV IM ONE (21:46)
== END 2023-03-22 22:10 | disposition home or self-care (01) ==
LOC: JD.ED 21:10
DX: F41.0 Panic disorder [episodic paroxysmal anxiety] (principal)
CPT/HCPCS: 96372; 99283; J2060; 99282

== ENCOUNTER 2023-05-10 23:17 | Emergency (ER) | payer MEDICAID ==
[2023-05-11] MEDS ORDERED: Ketorolac 60 MG/2 ML SDV IM ONE (00:17)
== END 2023-05-11 00:30 | disposition home or self-care (01) ==
LOC: JD.ED 23:17
DX: G89.29 Other chronic pain (principal); M54.6 Pain in thoracic spine; Z79.899 Other long term (current) drug therapy
CPT/HCPCS: 96372; 99283; J1885; 99282

== ENCOUNTER 2023-10-01 01:34 | Emergency (ER) | payer MEDICAID ==
[2023-10-01 01:48] LABS: BASOPHILS PERCENT AUTO 0.4 % (0.0-1.0); EOSINOPHILS ABSOLUTE AUTO 0.1 K/mm3 (0.0-0.4); EOSINOPHILS PERCENT AUTO 0.6 % (0.0-6.0); HEMATOCRIT 42.7 % (37.0-47.0); HEMOGLOBIN 14.1 gm/dl (12.0-16.0); IMMATURE GRAN ABSOLUTE AUTO 0.03 K/mm3 (0.00-0.05); IMMATURE GRAN PERCENT AUTO 0.3 % (0.0-0.4); LYMPHOCYTES ABSOLUTE AUTO 2.6 K/mm3 (1.0-4.8); LYMPHOCYTES PERCENT AUTO 28.3 % (24.0-44.0); MEAN CORPUSCULAR HEMOGLOBIN 31.5 pg (28.0-32.0); MEAN CORPUSCULAR VOLUME 95.3 fl (83.0-99.0); MEAN PLATELET VOLUME 8.9 fl (9.4-12.3); MONOCYTES ABSOLUTE AUTO 0.6 K/mm3 (0.0-0.8); MONOCYTES PERCENT AUTO 6.1 % (0.0-8.0); NEUTROPHILS PERCENT AUTO 64.3 % (41.0-71.0); PLATELET COUNT,PLT 325 K/mm3 (150-400); RED BLOOD CELL COUNT 4.48 M/mm3 (4.10-5.30); WHITE BLOOD CELL COUNT,WBC 9.32 K/mm3 (3.9-11.3)
[2023-10-01] MEDS: Ketorolac 15 MG/ML SDV IVPUSH ONE (01:54)
[2023-10-01] MEDS: Sodium Chloride 0.9% 1,000 ML IV ONE (01:54)
[2023-10-01 02:13] LABS: A/G RATIO 1.1 (1-2); ALANINE AMINOTRANSFERASE,ALT 18 U/L (14-59); ALBUMIN 4.7 g/dl (3.4-5.0); ALKALINE PHOSPHATASE 102 U/L (46-116); ANION GAP 14.2 (5-15); ASPARTATE AMNIOTRANSFERASE,AST 14 U/L (15-37); BILIRUBIN TOTAL 0.3 mg/dL (0.2-1.0); BLOOD UREA NITROGEN,BUN 6 mg/dL (7-18); BUN/CREATININE RATIO 7.5 (14-18); CALCIUM 9.2 mg/dL (8.5-10.1); CARBON DIOXIDE,CO2 26 mEq/L (21-32); CHLORIDE,CL 105 mEq/L (98-107); CREATININE 0.8 mg/dL (0.55-1.02); ESTIMATED GFR 106 mL/min (>60); ETHANOL BLOOD MEDICAL 0.08 gm% (0.00); GLUCOSE RANDOM 74 mg/dL (70-99); POTASSIUM,K 3.2 mEq/L (3.5-5.1); PROTEIN TOTAL,TP 9.1 g/dl (6.4-8.2); SODIUM,NA 142 mEq/L (136-145); TROPONIN I HIGH SENSITIVITY 5 pg/mL (<=51)
[2023-10-01] MEDS: Potassium Chloride 20 MEQ Tab.ER PO ONE (02:53)
[2023-10-01] MEDS: Cyclobenzaprine 10 MG Tab PO ONE (03:21)
== END 2023-10-01 03:25 | disposition home or self-care (01) ==
LOC: JD.ED 01:34
DX: M62.838 Other muscle spasm (principal); Z79.899 Other long term (current) drug therapy
CPT/HCPCS: 36415; 71045; 80053; 80307; 83690; 84484; 84703; 85025; 93005; 96361; 96374; 99285; A9270; J1885; J7030; 93010; 99284

== ENCOUNTER 2023-10-19 18:15 | Emergency (ER) | payer MEDICAID | END 2023-10-19 19:20 | LOC: JD.ED 18:15 | DX: K04.7 Periapical abscess without sinus (principal); Z79.899 Other long term (current) drug therapy | CPT/HCPCS: 99283 ==

== ENCOUNTER 2024-04-11 22:03 | Emergency (ER) | payer MEDICAID | END 2024-04-11 22:58 | disposition home or self-care (01) | LOC: JD.ED 22:03 | DX: O26.52 Maternal hypotension syndrome, second trimester (principal); O26.822 Pregnancy related peripheral neuritis, second trimester; Z3A.17 17 weeks gestation of pregnancy | CPT/HCPCS: 99283 ==

== ENCOUNTER 2024-10-09 21:45 | Emergency (ER) | payer MEDICAID | END 2024-10-10 01:00 | disposition home or self-care (01) | LOC: JD.ED 21:45 | DX: R50.9 Fever, unspecified (principal); F17.210 Nicotine dependence, cigarettes, uncomplicated; Z88.8 Allergy status to other drugs, medicaments and biological substances; Z88.5 Allergy status to narcotic agent; Z79.899 Other long term (current) drug therapy | CPT/HCPCS: 87428-QW; 99283; 99284 ==

== ENCOUNTER 2024-12-24 09:12 | Emergency (ER) | payer MEDICAID ==
[2024-12-24] MEDS: Naproxen 500 MG Tab PO ONE (11:39)
[2024-12-24] MEDS: Amoxicillin/Clavulanate K 875-125 MG Tab PO ONE (11:39)
== END 2024-12-24 11:57 | disposition home or self-care (01) ==
LOC: JD.ED 09:12
DX: K08.89 Other specified disorders of teeth and supporting structures (principal); Z88.5 Allergy status to narcotic agent; Z88.8 Allergy status to other drugs, medicaments and biological substances; Z79.899 Other long term (current) drug therapy
CPT/HCPCS: 99282; A9270

== ENCOUNTER 2025-01-17 16:37 | Emergency (ER) | payer MEDICAID ==
[2025-01-17] MEDS ORDERED: Sodium Chloride 0.9% 10 ML Syringe FLUSH PRN (16:53)
[2025-01-17 17:33] LABS: BASOPHILS ABSOLUTE AUTO 0.0 K/mm3 (0.0-0.2); BASOPHILS PERCENT AUTO 0.4 % (0.0-1.0); EOSINOPHILS ABSOLUTE AUTO 0.1 K/mm3 (0.0-0.4); EOSINOPHILS PERCENT AUTO 0.6 % (0.0-6.0); IMMATURE GRAN ABSOLUTE AUTO 0.02 K/mm3 (0.00-0.05); IMMATURE GRAN PERCENT AUTO 0.2 % (0.0-0.4); LYMPHOCYTES ABSOLUTE AUTO 1.3 K/mm3 (1.0-4.8); LYMPHOCYTES PERCENT AUTO 14.7 % (24.0-44.0); MEAN PLATELET VOLUME 9.2 fl (9.4-12.3); MONOCYTES ABSOLUTE AUTO 0.4 K/mm3 (0.0-0.8); MONOCYTES PERCENT AUTO 4.7 % (0.0-8.0); NEUTROPHILS ABSOLUTE AUTO 7.2 K/mm3 (1.8-7.7); NEUTROPHILS PERCENT AUTO 79.4 % (41.0-71.0); NRBC ABSOLUTE 0.00 (0.00-0.02); NRBC PERCENT 0.0 % (0.0-0.2); RED BLOOD CELL COUNT 4.83 M/mm3 (4.10-5.30); WHITE BLOOD CELL COUNT,WBC 9.09 K/mm3 (3.9-11.3)
[2025-01-17 17:37] LABS: PLATELET COUNT,PLT 247 K/mm3 (150-400)
[2025-01-17 17:53] LABS: A/G RATIO 1.0 (1-2); ALANINE AMINOTRANSFERASE,ALT 20.0 U/L (14-59); ASPARTATE AMNIOTRANSFERASE,AST 14.0 U/L (15-37); BILIRUBIN TOTAL 0.5 mg/dL (0.2-1.0); BLOOD UREA NITROGEN,BUN 8.0 mg/dL (7-18); CARBON DIOXIDE,CO2 30.0 mEq/L (21-32); CHLORIDE,CL 101.0 mEq/L (98-107); CREATININE 0.8 mg/dL (0.55-1.02); EST CRCL DRUG DOSING (CG) 105.45 mL/min; ESTIMATED GFR 105.0 mL/min (>60); GLUCOSE RANDOM 93.0 mg/dL (70-99); POTASSIUM,K 2.8 mEq/L (3.5-5.1); PROTEIN TOTAL,TP 7.8 g/dl (6.4-8.2); SODIUM,NA 141.0 mEq/L (136-145)
[2025-01-17] MEDS: Potassium Chloride 20 MEQ Tab.ER PO ONE (18:28)
== END 2025-01-17 18:30 | disposition home or self-care (01) ==
LOC: JD.ED 16:37
DX: R21 Rash and other nonspecific skin eruption (principal); F17.210 Nicotine dependence, cigarettes, uncomplicated; Z88.5 Allergy status to narcotic agent; Z88.8 Allergy status to other drugs, medicaments and biological substances; Z79.899 Other long term (current) drug therapy
CPT/HCPCS: 36415; 80053; 85025; 87651; 99283; A9270